=== PATIENT | male | born 1970 | race Caucasian/White ===

== ENCOUNTER → 2023-06-27 | Outpatient (CLI) | payer OTHER, SELFPAY ==
[2023-06-27 09:27] LABS: Ferritin 189 ng/mL (26-388); Iron 123 ug/dL (65-175)
[2023-06-28 05:07] LABS: Transferrin 280 mg/dL (177-329)
== END | disposition home or self-care (01) ==
PROVIDERS: PCP Nurse Practitioner Family; Referring Provider Nurse Practitioner Family; Visit Provider Nurse Practitioner Family
DX: Z13.0 Encounter for screening for diseases of the blood and blood-forming organs and certain disorders involving the immune mechanism (principal); Z83.49 Family history of other endocrine, nutritional and metabolic diseases
CPT/HCPCS: 36415; 82728; 83540; 84466